=== PATIENT | male | born 1985 | race African-American/Black ===

== ENCOUNTER 2021-03-21 03:28 | Emergency (ER) | payer SELFPAY ==
[2021-03-21] MEDS ORDERED: Ondansetron ODT 8 MG TAB ONE (03:37)
== END 2021-03-21 03:43 ==
LOC: ERS 03:28
DX: F10.129 Alcohol abuse with intoxication, unspecified (principal); R11.10 Vomiting, unspecified
CPT/HCPCS: 99284; Q0162